=== PATIENT | female | born 1955 | race Caucasian/White ===

== ENCOUNTER 2018-04-24 08:21 | Day surgery (SDC) | payer OTHER ==
[~2018-04-24] VITALS: Ht 172.7 cm; Wt 118.6 kg
[~2018-04-24 08:21] MED LIST: ASPI81CH PO; ASPIRIN-ACETAM1 EACH PO; CITRACAL + D E1 EACH PO; Coumadin5 MG PO; Dyazide 37.5-21 EACH PO; Lovenox80 MG/0.8 SQ; Red Yeast Rice600 MG PO; TRIA50 PO; VITAMIN D-32000 UNIT PO; WARF5 PO; XARELTO20 MG PO
== END 2018-04-24 10:35 | disposition home or self-care (01) ==
LOC: ORSCSDS 08:21
PROVIDERS: Surgery
PROC: 0DBM8ZX Excision of Descending Colon, Via Natural or Artificial Opening Endoscopic, Diagnostic (ICD-10-PCS; principal; 2018-04-24 09:45)
DX: Z12.11 Encounter for screening for malignant neoplasm of colon (principal); K63.5 Polyp of colon; I10 Essential (primary) hypertension; E03.9 Hypothyroidism, unspecified; Z86.718 Personal history of other venous thrombosis and embolism; Z79.01 Long term (current) use of anticoagulants; Z79.899 Other long term (current) drug therapy
CPT/HCPCS: 88305; J7120

== ENCOUNTER 2020-09-16 07:32 | Day surgery (SDC) | payer OTHER ==
[~2020-09-16] VITALS: Ht 170.2 cm; Wt 117.1 kg
[2020-09-16] MEDS ORDERED: HYDCHL25 PO (07:50)
[2020-09-16] MEDS ORDERED: Estrace Vagin42.5 GM PV (07:50)
--- NOTE | 2020-09-16 07:54 | NUR ---
09/16/20 0754 Kayden Lanza CALL LIGHT WITHIN REACH.
--- NOTE | 2020-09-16 08:48 | NUR ---
09/16/20 0848 Daniele Burger BUPIVACAINE 0.75 % MIXED W/ LIDOCAINE 2% 1:100,000 1:1 PER ORDER FOR INJECTION AT OPSITE BY DR FOSTER. 10 MLS INJECTED.
== END 2020-09-16 09:28 | disposition home or self-care (01) ==
LOC: ORSCSDS 07:32
PROVIDERS: Ophthalmology
PROC: 080N0ZZ Alteration of Right Upper Eyelid, Open Approach (ICD-10-PCS; principal; 2020-09-16 08:45)
PROC: 080P0ZZ Alteration of Left Upper Eyelid, Open Approach (ICD-10-PCS; principal; 2020-09-16 08:45)
DX: H02.831 Dermatochalasis of right upper eyelid (principal); H02.834 Dermatochalasis of left upper eyelid; I10 Essential (primary) hypertension; E66.9 Obesity, unspecified; Z68.41 Body mass index [BMI] 40.0-44.9, adult; Z79.899 Other long term (current) drug therapy; Z79.01 Long term (current) use of anticoagulants
CPT/HCPCS: A9270; J2405; J2704; J7040

== ENCOUNTER → 2021-06-11 | Outpatient (CLI) | payer OTHER ==
[~2021-06-11] MED LIST changes: +Estrace Vagin42.5 GM PV; +HYDCHL25 PO
[2021-06-15 15:11] LABS: HPV 16 Negative (Negative); HPV 18 Negative (Negative); HPV OTHER HR TYPES Negative (Negative)
== END | disposition home or self-care (01) ==
LOC: LAB 11:14 → LAB SHORT 11:14
PROVIDERS: Internal Medicine
DX: Z12.4 Encounter for screening for malignant neoplasm of cervix (principal)
CPT/HCPCS: 87624; G0145

== ENCOUNTER → 2022-01-29 | Outpatient (CLI) | payer OTHER ==
[2022-01-29 10:46] LABS: Source, Urine Clean Catch
[2022-01-29 12:17] LABS: Appearance, Urine Hazy (Clear); Bilirubin, Urine Neg (Neg); Blood, Urine 5+ (Neg); Color, Urine Yellow (P-Yellow); Glucose Qualitative, Urine Neg (Neg); Ketones, Urine 1+ (Neg); Leukocyte Esterase, Urine 3+ (Neg); Nitrite, Urine Neg (Neg); Protein, Urine 3+ (Neg); Urobilinogen, Urine NORM (Normal)
[2022-01-29 12:37] LABS: White Blood Cells, Urine 50-100 /hpf (0-5)
[2022-01-29 12:39] LABS: Bacteria Many /hpf; Calcium Oxalate Crystals Few /hpf; Squamous Epithelial Cells Rare /hpf (Few)
[2022-01-29 12:42] LABS: Mucus Light (0-Heavy)
== END | disposition home or self-care (01) ==
LOC: LAB SHORT 10:45 → LAB 10:45
PROVIDERS: Internal Medicine
DX: R30.0 Dysuria (principal)
CPT/HCPCS: 81001; 87077; 87086; 87186